=== PATIENT | male | born 1975 | race Caucasian/White ===

== ENCOUNTER → 2017-09-10 | Outpatient (CLI) | payer BC ==
[~2017-09-10] MED LIST: CONTRAST GIVEN MC
[2017-09-10] MEDS: IOHEXOL 240 MG/ML 50ML VIAL. PO (09:00)
[2017-09-10] MEDS: IOHEXOL 300 MG/ML 100ML VIAL. IV (09:00)
== END | disposition home or self-care (01) ==
LOC: NM 08:39
DX: C79.51 Secondary malignant neoplasm of bone (principal)
CPT/HCPCS: 70492; 71270; 74178; 77075; 78306; 96374; A9503; Q9966; Q9967

== ENCOUNTER 2017-09-14 08:26 | Outpatient (CLI) | payer BC ==
[2017-09-14 09:10] LABS: HEMOGLOBIN 14.3 g/dL (13.0-17.5); MEAN CORPUSCULAR HEMOGLOBIN 30 pg (25-35); MEAN CORPUSCULAR HGB CONC 34 g/dL (31-37); MEAN CORPUSCULAR VOLUME 88 fL (79-100); PLATELET COUNT 248 x10^3/uL (140-400); RED BLOOD COUNT 4.77 x10^6/uL (4.30-5.70); RED CELL DISTRIBUTION WIDTH 13.7 % (11.5-14.5); WHITE BLOOD COUNT 8.5 x10^3/uL (4.0-11.0)
[2017-09-14 09:22] LABS: ANION GAP 7 (6-14); BLOOD UREA NITROGEN 14 mg/dL (8-26); CALCIUM 9.4 mg/dL (8.5-10.1); CARBON DIOXIDE 28 mmol/L (21-32); CHLORIDE 104 mmol/L (98-107); CREATININE 0.9 mg/dL (0.7-1.3); GFR 93.5; GLUCOSE 105 mg/dL (70-99); POTASSIUM 4.1 mmol/L (3.5-5.1); SODIUM 139 mmol/L (136-145)
[2017-09-14 09:23] LABS: INR 1.1 (0.8-1.1); PROTHROMBIN TIME PATIENT 13.2 SEC (11.7-14.0)
[2017-09-14] MEDS ORDERED: fentaNYL PF VIAL 100 MCG/2 ML VIAL (09:26)
[2017-09-14] MEDS ORDERED: MIDAZOLAM HCL/PF 2 MG/2 ML VIAL. (09:26)
[2017-09-14] MEDS ORDERED: LIDOCAINE WITH 8.4% SOD BICARB 3 ML DISP.SYRIN. (09:29)
[2017-09-14] MEDS: MIDAZOLAM HCL/PF 2 MG/2 ML VIAL. IV (10:02)
[2017-09-14] MEDS: fentaNYL PF VIAL 100 MCG/2 ML VIAL IV (10:03)
[2017-09-14] MEDS: LIDOCAINE WITH 8.4% SOD BICARB 3 ML DISP.SYRIN. IJ (10:04)
== END 2017-09-14 12:01 | disposition home or self-care (01) ==
LOC: INTRAD 08:26
DX: M89.8X8 Other specified disorders of bone, other site (principal); M10.9 Gout, unspecified; E66.9 Obesity, unspecified
CPT/HCPCS: 36415; 38222; 77012; 80048; 85027; 85610; 88184; 88185; 88237; 88305; 88311; 88313; 88342; 88364; 88365; 99152; J2250; J3010

== ENCOUNTER → 2018-07-07 | Outpatient (CLI) | payer BC ==
[2017-09-14 10:45] VITALS: BP 113/68
[~2018-07-07] MED LIST changes: +ALLO300T PO; -CONTRAST GIVEN MC; +PROB500T PO
--- NOTE | 2018-07-07 12:50 | RAD ---
Chest, 2 views, 07/07/2018: HISTORY: Cough The heart size and pulmonary vascularity are normal. No pulmonary infiltrate is seen. There is no evidence of pleural fluid. Mild scattered degenerative changes are present in the spine. There are bilateral rib deformities. The most prominent of these involves the lateral aspect of the right seventh rib. It corresponds in location to a lytic bone lesion evident on a prior chest radiograph from 09/10/2017. This lesion has partially healed. A lytic lesion involving the distal left clavicle has also improved. IMPRESSION: 1. No acute cardiopulmonary abnormality is detected. 2. Improving lytic bone lesions. Is there history of multiple myeloma or metastatic disease? Electronically signed by: Khang Soriano MD (07/07/2018 12:46 PM) [facility]
== END | disposition home or self-care (01) ==
LOC: RAD 12:08
PROVIDERS: ATTEND Physical Medicine & Rehabilitation
DX: J02.8 Acute pharyngitis due to other specified organisms (principal)
CPT/HCPCS: 71046